=== PATIENT | female | born 2000 | race Caucasian/White ===

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

== ENCOUNTER → 2022-10-18 | Outpatient (REF) | payer OTHER ==
[2022-10-18 15:46] LABS: GC DNA AMPLIFICATION NEGATIVE (NEGATIVE)
== END ==
LOC: M SFHCWAGY 12:59
PROVIDERS: ATTEND Nurse Practitioner Family
DX: Z11.3 Encounter for screening for infections with a predominantly sexual mode of transmission (principal); R39.15 Urgency of urination

== ENCOUNTER → 2023-11-06 | Outpatient (REF) | payer OTHER ==
[2023-11-06 18:19] LABS: Trichomonas vaginalis (AMP) NOT DETECTED (NEGATIVE)
[2023-11-06 18:42] LABS: GC DNA AMPLIFICATION NEGATIVE (NEGATIVE)
== END ==
LOC: M LAB REF 16:09
PROVIDERS: ATTEND Nurse Practitioner Family
DX: R30.0 Dysuria (principal); Z11.3 Encounter for screening for infections with a predominantly sexual mode of transmission; B37.31 Acute candidiasis of vulva and vagina

== ENCOUNTER → 2025-04-29 | Outpatient (REF) | payer OTHER ==
[~2025-04-29] MED LIST changes: -SULF400T14 PO; +SULF400T15 PO
[2025-04-29 12:20] LABS: Trichomonas vaginalis (AMP) NOT DETECTED (NEGATIVE)
[2025-04-29 12:44] LABS: GC DNA AMPLIFICATION NEGATIVE (NEGATIVE)
[2025-05-05 13:39] LABS: HPV APTIMA Not Detected (Not Detected)
== END ==
LOC: M SFHCWAGY 10:23
PROVIDERS: ATTEND Nurse Practitioner Family
DX: N93.0 Postcoital and contact bleeding (principal); Z12.4 Encounter for screening for malignant neoplasm of cervix; Z77.9 Other contact with and (suspected) exposures hazardous to health
CPT/HCPCS: 87070; 87624; 87661; 87810; 87850; G0123